=== PATIENT | female | born 1985 | race Two or more races ===

== ENCOUNTER → 2016-12-15 | Outpatient (CLI) | payer OTHER ==
[2016-12-15 12:01] LABS: BUN/Creatinine Ratio 16.7; Bilirubin, Total 0.4 mg/dL (0.2-1.0); Calcium 8.9 mg/dL (8.5-10.1); Potassium 3.8 mmol/L (3.5-5.1); Total Protein 7.9 g/dL (6.4-8.2)
[2016-12-15 12:37] LABS: Urine Bilirubin Negative (Negative); Urine Blood Negative /uL (Negative); Urine Color Yellow (Yellow); Urine Glucose Normal (Normal); Urine Ketone Negative (Negative); Urine Nitrite Negative (Negative); Urine RBC 2 /hpf (0 - 4); Urine Squamous Epithelial Cell MOD /hpf (<5); Urine Urobilinogen Normal (Negative); Urine pH 6.5 (5.0-8.0)
[2016-12-15 12:52] LABS: Basophils # (auto) 0 uL; Basophils % (auto) 0.5 % (0.0-2.0); Eosinophils # (auto) 0.2 uL; Eosinophils % (auto) 3.1 % (0.0-7.0); Hematocrit 43.5 % (36.0-46.0); Lymphocytes # (auto) 1.4 uL; Lymphocytes % (auto) 25.4 % (10.0-50.0); Mean Corpuscular Hemoglobin 28.1 pg (28.0-32.0); Mean Corpuscular Hgb Conc. 32.1 g/dL (32.0-36.0); Mean Corpuscular Volume 87.5 fL (80.0-100.0); Mean Platelet Volume 8.4 fL (7.4-10.4); Monocytes # (auto) 0.4 uL; Monocytes % (auto) 6.6 % (0.0-12.0); Neutrophils # (auto) 3.6 uL; Neutrophils % (auto) 64.4 % (37.0-80.0); Platelet Count (auto) 350 10^3/uL (140-450); Red Cell Distribution Width 14.3 % (11.6-16.0); White Blood Cell 5.6 10^3/uL (4.4-10.8)
== END | disposition home or self-care (01) ==
LOC: LAB 10:06
PROVIDERS: ATTEND Internal Medicine
DX: R10.9 Unspecified abdominal pain (principal)
CPT/HCPCS: 36415; 80053; 80061; 81001; 82150; 83036; 83690; 84439; 84443; 85025; 85049; 85652; 86677

== ENCOUNTER → 2017-01-29 | Outpatient (CLI) | payer OTHER | END | disposition home or self-care (01) | LOC: LAB 07:34 | PROVIDERS: ATTEND Internal Medicine | DX: N76.0 Acute vaginitis (principal) | CPT/HCPCS: 87070 ==

== ENCOUNTER → 2020-07-09 | Outpatient (CLI) | payer OTHER ==
[2020-07-09 10:24] LABS: Basophils # (auto) 0 10 ^3/uL (0-0.2); Basophils % (auto) 0.7 % (0.0-2.0); Eosinophils # (auto) 0.2 10 ^3/uL (0-0.8); Hematocrit 40.7 % (36.0-46.0); Hemoglobin 13.2 g/dL (12.2-16.2); Lymphocytes # (auto) 1.2 10 ^3/uL (0.4-5.4); Lymphocytes % (auto) 22.7 % (10.0-50.0); Mean Corpuscular Hemoglobin 28.2 pg (28.0-32.0); Mean Corpuscular Hgb Conc. 32.4 g/dL (32.0-36.0); Mean Corpuscular Volume 87.1 fL (80.0-100.0); Monocytes # (auto) 0.4 10 ^3/uL (0-1.3); Monocytes % (auto) 7.5 % (0.0-12.0); Neutrophils # (auto) 3.5 10 ^3/uL (1.6-8.6); Neutrophils % (auto) 65.1 % (37.0-80.0); Platelet Count (auto) 369 10^3/uL (140-450); Red Blood Cells 4.67 10^6/uL (4.0-5.20); Red Cell Distribution Width 14.9 % (11.8-14.3); White Blood Cell 5.4 10^3/uL (4.4-10.8)
[2020-07-09 10:39] LABS: Urine Bacteria FEW /hpf (None Seen); Urine Blood Negative /uL (Negative); Urine Mucus FEW (None Seen); Urine Specific Gravity 1.023 (1.001-1.035); Urine WBC <1 /hpf (0 - 5)
[2020-07-09 11:03] LABS: Potassium 3.9 mmol/L (3.5-5.1)
[2020-07-09 11:18] LABS: Albumin 3.6 g/dL (3.4-5.0); BUN/Creatinine Ratio 16.4; Bilirubin, Total 0.5 mg/dL (0.2-1.0); Calcium 8.7 mg/dL (8.5-10.1); Total Protein 7.4 g/dL (6.4-8.2)
== END | disposition home or self-care (01) ==
LOC: LAB 10:02
PROVIDERS: ATTEND Internal Medicine
DX: K62.5 Hemorrhage of anus and rectum (principal); K29.70 Gastritis, unspecified, without bleeding
CPT/HCPCS: 36415; 80053; 80061; 81001; 84439; 84443; 85025; 85652

== ENCOUNTER 2023-07-03 06:30 | Inpatient (IN) | payer BC, OTHER ==
[~2023-07-03] VITALS: Ht 154.9 cm; Wt 95.2 kg
[2023-07-03] MEDS ORDERED: PANTOPRAZOLE 40 MG/10 ML VIAL INJ IV ONE (07:00)
[2023-07-03] MEDS ORDERED: MORPHINE SULFATE 4 MG/ML SYR/VIAL IV ONE (07:00)
[2023-07-03] MEDS ORDERED: SODIUM CHLORIDE 0.9% 1,000 ML IVB ONE (07:00)
[2023-07-03] MEDS ORDERED: ONDANSETRON HCL 4 MG/2 ML VIAL IV ONE (07:00)
[2023-07-03 07:16] LABS: Urine Bacteria NONE SEEN /hpf (None Seen); Urine Blood Negative /uL (Negative); Urine Clarity HAZY (Clear); Urine Color Yellow (Yellow); Urine Hyaline Cast FEW /lpf (0 - 2); Urine Mucus FEW (None Seen); Urine Protein, UAD 2+ (Negative); Urine Specific Gravity 1.033 (1.001-1.035); Urine WBC 6 /hpf (0 - 5); Urine pH 6.5 (5.0-8.0)
[2023-07-03 07:45] LABS: Basophils # (auto) 0 10 ^3/uL (0-0.2); Eosinophils # (auto) 0.1 10 ^3/uL (0-0.8); Eosinophils % (auto) 1.2 % (0.0-7.0); Monocytes # (auto) 0.7 10 ^3/uL (0-1.3); Neutrophils # (auto) 7.7 10 ^3/uL (1.6-8.6); Nucleated Red Blood Cells % 0.1 %; White Blood Cell 9.7 10^3/uL (4.4-10.8)
[2023-07-03 07:46] LABS: Basophils % (auto) 0.4 % (0.0-2.0); Hematocrit 39.9 % (36.0-46.0); Hemoglobin 12.9 g/dL (12.2-16.2); Lymphocytes # (auto) 1.1 10 ^3/uL (0.4-5.4); Lymphocytes % (auto) 11.6 % (10.0-50.0); Mean Corpuscular Hemoglobin 26.5 pg (28.0-32.0); Mean Corpuscular Hgb Conc. 32.4 g/dL (32.0-36.0); Mean Corpuscular Volume 81.7 fL (80.0-100.0); Monocytes % (auto) 7.6 % (0.0-12.0); Neutrophils % (auto) 79.2 % (37.0-80.0); Red Blood Cells 4.88 10^6/uL (4.0-5.20); Red Cell Distribution Width 16.3 % (11.8-14.3)
[2023-07-03 07:53] LABS: Albumin 3.8 g/dL (3.4-5.0); Calcium 8.6 mg/dL (8.5-10.1); Magnesium 2.4 mg/dL (1.6-2.6); Potassium 3.4 mmol/L (3.5-5.1)
[2023-07-03 07:57] LABS: BUN/Creatinine Ratio 10.3 (10.0-20.0); Bilirubin, Total 0.4 mg/dL (0.2-1.0); Total Protein 8.2 g/dL (6.4-8.2)
[2023-07-03] MEDS ORDERED: PIPERACILLIN-TAZOB 3.375GM 100 ML IV ONE (09:00)
[2023-07-03] MEDS ORDERED: metroNIDAZOLE 500MG/100ML 100 ML IV ONE (09:00)
[2023-07-03] MEDS ORDERED: HYDROcodone-ACET 5/325MG TAB PO PRN (10:45)
[2023-07-03] MEDS ORDERED: POTASSIUM EFFERVESENT TAB 25 MEQ PO ONE (11:00)
[2023-07-03] MEDS ORDERED: NITROGLYCERIN 0.4 MG SL TAB SL PRN (11:00)
[2023-07-03] MEDS ORDERED: MORPHINE SULFATE INJ 2 MG/ml SYRG IV PRN ×2 (11:00→14:00)
[2023-07-03] MEDS ORDERED: MORPHINE SULFATE INJ 2 MG/ml SYRG IV ONE (13:15)
[2023-07-03 13:32] LABS: Cholesterol 194 mg/dL (< 200); Triglycerides 71 mg/dL (< 150)
[2023-07-03 13:36] LABS: HDL Cholesterol 65 mg/dL (40-59); LDL Cholesterol 117 mg/dL (< 100)
[2023-07-03] MEDS ORDERED: ACETAMINOPHEN 500 MG TAB PO PRN (14:00)
[2023-07-03 14:48] VITALS: PULSE 55; RESP 16; O2SAT 96
[2023-07-03] MEDS: LISINOPRIL 5 MG TAB PO ONE ×2 (15:32→16:01)
[2023-07-03 15:44] LABS: INR 1.1 (0.9-1.15); Partial Thromboplastin Time 27.6 SEC (24.5-34.5); Prothrombin Time 11.5 sec (9.3-11.8)
[2023-07-03] MEDS: SODIUM CHLORIDE 0.9% 1,000 ML IV SCH (16:08)
[2023-07-03] MEDS: HYDROmorphone HCL 2 MG/ML VL/or syr IV PRN ×2 (17:29→22:35)
[2023-07-03] MEDS ORDERED: metroNIDAZOLE 500MG/100ML 100 ML IV SCH (17:30)
[2023-07-04] VITALS (8 sets, daily range): BP systolic 109–156; BP diastolic 61–88; PULSE 84–120; RESP 14–18; TEMP 97.6–98.7; O2SAT 92–98
[2023-07-04] MEDS ORDERED: ACET-1304 PO (01:42)
[2023-07-04] MEDS ORDERED: NAPR220C PO (01:43)
[2023-07-04] MEDS: metroNIDAZOLE 500MG/100ML 100 ML IV SCH ×3 (01:44→18:27)
[2023-07-04] MEDS ORDERED: ONDANSETRON HCL 4 MG/2 ML VIAL IV PRN ×2 (02:45→09:15)
[2023-07-04] MEDS: SODIUM CHLORIDE 0.9% 1,000 ML IV SCH ×2 (03:20→17:17)
[2023-07-04] MEDS ORDERED: LIDOCAINE W/ EPINEPHRINE 2% INJ 20ML VIAL ONE (06:52)
[2023-07-04] MEDS ORDERED: BUPIVACAINE 0.25% INJ 50ML VIAL ONE (06:52)
[2023-07-04] MEDS ORDERED: ceFAZolin 1GM/50ML 100 ML IV ONE (07:00)
[2023-07-04] MEDS ORDERED: SUCCINYLCHOLINE CHLORIDE 20 MG/ML 10ML VIAL IV ONE (07:05)
[2023-07-04] MEDS ORDERED: ROCURONIUM 10MG/ML 10ML VIAL IV ONE (07:05)
[2023-07-04] MEDS ORDERED: fentaNYL CITRATE 100 MCG/2 ML VL ONE (07:06)
[2023-07-04] MEDS ORDERED: MIDAZOLAM HCL 2MG/2ML 2ml VIAL (1mg/ml) ONE (07:06)
[2023-07-04] MEDS ORDERED: HYDROmorphone HCL 2 MG/ML VL/or syr ONE (07:06)
[2023-07-04] MEDS ORDERED: PROPOFOL 10 MG/ML 20 ML IV ONE (07:07)
[2023-07-04] MEDS ORDERED: DexAMETHasone SOD PHOS 10MG/1ML VIAL INJ ONE (07:07)
[2023-07-04] MEDS ORDERED: LIDOCAINE HCL 100 MG/5ML (2%) SYRG INJ IV ONE (07:07)
[2023-07-04] MEDS ORDERED: KETOROLAC TROMETH 30 MG/ML 1ML VIAL ONE ×2 (07:07→07:35)
[2023-07-04] MEDS ORDERED: GLYCOPYRROLATE 0.2 MG/ML 1ML VIAL ONE (07:07)
[2023-07-04] MEDS ORDERED: ePHEDrine SULFATE 50 MG/ML AMP ONE (07:35)
[2023-07-04] MEDS ORDERED: SUGAMMADEX 200mg/2ml Vial (100MG/ML) IV ONE (07:56)
[2023-07-04] MEDS ORDERED: D5W/SOD CHL 0.45%/KCL 20MEQ 1,000 ML IV SCH (09:00)
[2023-07-04] MEDS ORDERED: HYDROmorphone HCL 2 MG/ML VL/or syr IV PRN (09:15)
[2023-07-04] MEDS ORDERED: LISINOPRIL 5 MG TAB PO SCH (10:00)
[2023-07-04] MEDS ORDERED: MORPHINE SULFATE INJ 2 MG/ml SYRG IV SCH (10:00)
[2023-07-04] MEDS: PANTOPRAZOLE 40 MG/10 ML VIAL INJ IV SCH (10:30)
[2023-07-04] MEDS: cefTRIAXone 1GM/50ML D5W 50 ML IV SCH (10:30)
[2023-07-04] MEDS: ONDANSETRON HCL 4 MG/2 ML VIAL IV SCH (10:30)
[2023-07-04 11:27] LABS: Hematocrit 35.6 % (36.0-46.0); Hemoglobin 11.2 g/dL (12.2-16.2)
[2023-07-04 11:29] LABS: Mean Corpuscular Hemoglobin 25.9 pg (28.0-32.0); Mean Corpuscular Hgb Conc. 31.6 g/dL (32.0-36.0); Mean Corpuscular Volume 81.8 fL (80.0-100.0); Red Blood Cells 4.35 10^6/uL (4.0-5.20); Red Cell Distribution Width 16.7 % (11.8-14.3); White Blood Cell 15.4 10^3/uL (4.4-10.8)
[2023-07-04 11:37] LABS: Band Neutrophils % (manual) 0; Basophils % (manual) 0 (0.0-2.0); Blast Cells 0; Eosinophils % (manual) 0 (0-7); Metamyelocytes % 0; Myelocytes % 0; Promyelocytes % 0; Reactive Lymphocytes 0
[2023-07-04 11:59] LABS: BUN/Creatinine Ratio 10.3 (10.0-20.0); Calcium 7.6 mg/dL (8.5-10.1); Potassium 3.9 mmol/L (3.5-5.1)
[2023-07-04 12:07] LABS: Lymphocytes % (manual) 3 (10.0-50.0); Monocytes % (manual) 3 (0-12); Platelet Estimate Adequate
[2023-07-04] MEDS: HYDROcodone-ACET 5/325MG TAB PO PRN (17:21)
[2023-07-05] MEDS: metroNIDAZOLE 500MG/100ML 100 ML IV SCH ×3 (02:13→17:44)
[2023-07-05 05:00] VITALS: BP 118/67; PULSE 87; RESP 16; TEMP 97.9; O2SAT 97
[2023-07-05 05:54] LABS: Basophils # (auto) 0 10 ^3/uL (0-0.2); Eosinophils # (auto) 0 10 ^3/uL (0-0.8); Lymphocytes # (auto) 0.7 10 ^3/uL (0.4-5.4); Monocytes # (auto) 0.8 10 ^3/uL (0-1.3); Neutrophils # (auto) 11.4 10 ^3/uL (1.6-8.6); White Blood Cell 12.9 10^3/uL (4.4-10.8)
[2023-07-05 05:57] LABS: Hematocrit 31.6 % (36.0-46.0); Lymphocytes % (auto) 5.8 % (10.0-50.0); Mean Corpuscular Hemoglobin 26.2 pg (28.0-32.0); Mean Corpuscular Hgb Conc. 31.8 g/dL (32.0-36.0); Mean Corpuscular Volume 82.3 fL (80.0-100.0); Monocytes % (auto) 5.9 % (0.0-12.0); Neutrophils % (auto) 88.3 % (37.0-80.0); Red Blood Cells 3.84 10^6/uL (4.0-5.20); Red Cell Distribution Width 16.6 % (11.8-14.3)
[2023-07-05] MEDS: SODIUM CHLORIDE 0.9% 1,000 ML IV SCH ×2 (06:00→19:20)
[2023-07-05 08:00] VITALS: RESP 18; O2SAT 96
[2023-07-05] MEDS: cefTRIAXone 1GM/50ML D5W 50 ML IV SCH (08:49)
[2023-07-05] MEDS: PANTOPRAZOLE 40 MG/10 ML VIAL INJ IV SCH (08:49)
[2023-07-05] MEDS: ONDANSETRON HCL 4 MG/2 ML VIAL IV SCH (08:50)
[2023-07-05 09:00] VITALS: BP 132/69; PULSE 85; RESP 17; TEMP 97.7; O2SAT 90
[2023-07-05] MEDS: HYDROcodone-ACET 5/325MG TAB PO PRN (12:56)
[2023-07-05 13:00] VITALS: BP 141/80; PULSE 73; RESP 16; TEMP 97.7; O2SAT 94
[2023-07-05 17:00] VITALS: BP 135/75; PULSE 71; RESP 24; TEMP 97.5; O2SAT 95
[2023-07-05 21:10] LABS: Basophils # (auto) 0 10 ^3/uL (0-0.2); Basophils % (auto) 0.3 % (0.0-2.0); Eosinophils # (auto) 0 10 ^3/uL (0-0.8); Eosinophils % (auto) 0.2 % (0.0-7.0); Hematocrit 31.9 % (36.0-46.0); Hemoglobin 10.1 g/dL (12.2-16.2); Lymphocytes # (auto) 2.1 10 ^3/uL (0.4-5.4); Lymphocytes % (auto) 21.1 % (10.0-50.0); Mean Corpuscular Hgb Conc. 31.8 g/dL (32.0-36.0); Mean Corpuscular Volume 81.8 fL (80.0-100.0); Monocytes # (auto) 0.7 10 ^3/uL (0-1.3); Neutrophils # (auto) 7.1 10 ^3/uL (1.6-8.6); Neutrophils % (auto) 71.4 % (37.0-80.0); Nucleated Red Blood Cells % 0.1 %; Red Blood Cells 3.89 10^6/uL (4.0-5.20); Red Cell Distribution Width 16.4 % (11.8-14.3)
[2023-07-05 21:27] LABS: Potassium 3.2 mmol/L (3.5-5.1)
[2023-07-05 21:37] LABS: Albumin 2.7 g/dL (3.4-5.0); BUN/Creatinine Ratio 16.7 (10.0-20.0); Bilirubin, Total 0.3 mg/dL (0.2-1.0); Calcium 7.8 mg/dL (8.5-10.1); Total Protein 6.5 g/dL (6.4-8.2)
[2023-07-05 22:00] VITALS: BP_SYST 134; BP_SYST 140; BP_DIAS 56; BP_DIAS 75; PULSE 61; PULSE 65; RESP 14; RESP 16; TEMP 97.7; TEMP 98.1; O2SAT 91; O2SAT 99
[2023-07-06] MEDS: metroNIDAZOLE 500MG/100ML 100 ML IV SCH ×2 (02:05→10:17)
[2023-07-06 05:00] VITALS: BP_SYST 143; BP_SYST 144; BP_DIAS 75; BP_DIAS 77; PULSE 77; PULSE 81; RESP 14; RESP 16; TEMP 98; TEMP 98.3; O2SAT 92; O2SAT 99
[2023-07-06] MEDS ORDERED: POTASSIUM EFFERVESENT TAB 25 MEQ PO ONE (07:45)
[2023-07-06] MEDS: cefTRIAXone 1GM/50ML D5W 50 ML IV SCH (08:34)
[2023-07-06] MEDS: SODIUM CHLORIDE 0.9% 1,000 ML IV SCH (08:35)
[2023-07-06 08:59] VITALS: BP 138/80; PULSE 66; RESP 14; TEMP 98.5; O2SAT 92
[2023-07-06] MEDS: PANTOPRAZOLE 40 MG/10 ML VIAL INJ IV SCH (10:17)
[2023-07-06] MEDS: ONDANSETRON HCL 4 MG/2 ML VIAL IV SCH (10:18)
[2023-07-06 13:00] VITALS: BP 145/81; PULSE 75; RESP 22; TEMP 98.2; O2SAT 96
[2023-07-06 17:25] VITALS: BP 137/77; PULSE 76; RESP 18; TEMP 98.8; O2SAT 96
== END 2023-07-06 18:10 | disposition home or self-care (01) | DRG 419 ==
LOC: ER 06:30 → OVERFLOW 10:48 → WEST WING 22:52
PROVIDERS: ADMIT Internal Medicine; ATTEND Student in an Organized Health Care Education/Training Program
PROC: 0FT44ZZ Resection of Gallbladder, Percutaneous Endoscopic Approach (ICD-10-PCS; principal; 2023-07-04 07:13)
DX: K80.00 Calculus of gallbladder with acute cholecystitis without obstruction (principal); E66.9 Obesity, unspecified; E87.6 Hypokalemia; K76.0 Fatty (change of) liver, not elsewhere classified; Z68.39 Body mass index [BMI] 39.0-39.9, adult; E66.01 Morbid (severe) obesity due to excess calories
CPT/HCPCS: 36415; 76705; 80048; 80053; 80061; 81001; 81025; 82247; 83690; 83735; 85007; 85025; 85027; 85610; 85730; 96365; 96368; 96375; C9113; G0378; J0330; J0690; J0696; J1100; J1885; J2250; J2405; J2543; J2704; J3490

== ENCOUNTER → 2023-07-09 | Outpatient (CLI) | payer BC ==
[~2023-07-09] MED LIST: ACET-1304 PO; NAPR220C PO
== END | disposition home or self-care (01) ==
LOC: LAB 13:18
PROVIDERS: ATTEND Internal Medicine
DX: E87.6 Hypokalemia (principal); R07.89 Other chest pain
CPT/HCPCS: 36415; 84132; 85379

== ENCOUNTER 2023-07-26 20:18 | Emergency (ER) | payer BC ==
[~2023-07-26] VITALS: Ht 175.3 cm; Wt 83.5 kg
[2023-07-26 20:36] VITALS: BP 138/83; PULSE 96; RESP 18; TEMP 98.3; O2SAT 95
[2023-07-26] MEDS ORDERED: CEPH500C PO (22:32)
== END 2023-07-26 22:51 | disposition home or self-care (01) ==
LOC: ER 20:19
DX: M79.651 Pain in right thigh (principal); Z90.49 Acquired absence of other specified parts of digestive tract
CPT/HCPCS: 93971